=== PATIENT | male | born 1980 | race American Indian/Alaskan Native ===

== ENCOUNTER 2016-10-30 14:15 | Emergency (ER) | payer MEDICARE ==
[2016-10-30 15:00] VITALS: BP 129/82
[2016-10-30] MEDS ORDERED: FIORICET PO ONE (16:44)
--- NOTE | 2016-10-30 16:44 | Emergency Department Report ---
Entered by BONNY BOOTH, acting as scribe for JONATHAN XIONG PA. ED Headache HPI - General Chief Complaint: Headache Stated Complaint: MIGRAINES Time Seen by Provider: 10/30/16 16:31 Source: patient Exam Limitations: no limitations - History of Present Illness Initial Comments: 36 y/o male with a PMHx of HTN, migraines, and kidney transplant presents to the ED c/o a headache that began 2 weeks ago. Rates pain a 10/10 in severity, which he describes as throbbing in quality. Aggravated with light exposure and noise, and alleviated with medication. Associated symptoms includes fatigue and congestion, but he denies fever, chills, nausea, vomiting, dizziness, vision changes, and neck pain. Notes Hx of migraines. Denies that this headache feels like the worst headache in his life. Notes that when he goes to the ED for his migraines, they are usually relieved with dilaudid and a shot. Timing/Duration: other (2 weeks) Quality: moderate, throbbing Head Injury Location: frontal Recent Head Trauma: chronic headaches Modifying Factors: improves with: medication. worse with: exposure to light Associated Symptoms: denies symptoms, fatigue, nasal congestion. denies: confusion, facial pain, fever/chills, flushing, loss of consciousness, nausea/ vomiting, nasal drainage, numbness in legs/feet, rash, seizures, sinus infection , stiff neck, vision changes, weakness Allergies/Adverse Reactions: Allergies fexofenadine HCl [From Crissy-D] Allergy (Verified 10/30/16 14:56) Hives morphine Allergy (Verified 10/30/16 14:56) Hives prochlorperazine [From Compazine] Allergy (Verified 10/30/16 14:56) Hives prochlorperazine edisylate [From Compazine] Allergy (Verified 10/30/16 14:56) Hives prochlorperazine maleate [From Compazine] Allergy (Verified 10/30/16 14:56) Hives pseudoephedrine HCl [From Crissy-D] Allergy (Verified 10/30/16 14:56) Hives Sulfa (Sulfonamide Antibiotics) Allergy (Verified 10/30/16 14:56) Hives sulfamethoxazole [From Bactrim] Allergy (Verified 10/30/16 14:56) Hives trimethoprim [From Bactrim] Allergy (Verified 10/30/16 14:56) Hives Home Medications: Ambulatory Orders Butalb/Acetamin/Caff 50-325-40 [Fioricet] 1 each PO Q6HR PRN #14 tablet ED Review of Systems Comment: All other systems reviewed and negative Constitutional: other (fatigue). denies: chills, fever Eyes: denies: eye pain, eye discharge, vision change ENT: congestion. denies: ear pain, throat pain Respiratory: denies: cough, shortness of breath, wheezing Cardiovascular: denies: chest pain, palpitations Endocrine: no symptoms reported Gastrointestinal: denies: abdominal pain, nausea, vomiting, diarrhea Genitourinary: denies: urgency, dysuria Musculoskeletal: denies: back pain, joint swelling, arthralgia Skin: denies: rash, lesions Neurological: headache. denies: weakness, numbness, paresthesias, confusion, abnormal gait, vertigo Psychiatric: denies: anxiety, depression Hematological/Lymphatic: denies: easy bleeding, easy bruising ED Past Medical Hx - Past Medical History Previous Medical History?: Yes Hx Hypertension: Yes (BEFORE KIDNEY TRANSPLANT) Hx Headaches / Migraines: Yes Additional medical history: HD BEFORE KIDNEY TRANSPLANT/ SEIZURES A CHILD - Surgical History Past Surgical History?: Yes Additional Surgical History: VAS CATH - Family History Family history: no significant - Social History Smoking Status: Never Smoker Substance Use Type: Marijuana - Medications Home Medications: Home Medications Medication Instructions Recorded Confirmed Last Taken Type Butalb/Acetamin/Caff 50-325-40 1 each PO Q6HR PRN #14 tablet 10/30/16 Unknown Rx [Fioricet] ED Physical Exam - General Limitations: No Limitations General appearance: alert, in no apparent distress - Head Head exam: Present: atraumatic, normocephalic - Eye Eye exam: Present: normal appearance, PERRL, EOMI. Absent: scleral icterus, conjunctival injection, nystagmus, periorbital swelling, periorbital tenderness Pupils: Present: normal accommodation - ENT ENT exam: Present: normal exam, normal orophraynx, mucous membranes moist, TM's normal bilaterally, normal external ear exam - Neck Neck exam: Present: normal inspection, full ROM. Absent: tenderness, meningismus, lymphadenopathy, thyromegaly - Respiratory Respiratory exam: Present: normal lung sounds bilaterally. Absent: respiratory distress, wheezes, rales, rhonchi, stridor, accessory muscle use, decreased breath sounds - Cardiovascular Cardiovascular Exam: Present: regular rate, normal rhythm, normal heart sounds. Absent: systolic murmur, diastolic murmur, rubs, gallop - GI/Abdominal GI/Abdominal exam: Present: soft, normal bowel sounds. Absent: distended - Rectal Rectal exam: Present: deferred - Extremities Exam Extremities exam: Present: normal inspection - Back Exam Back exam: Present: normal inspection - Neurological Exam Neurological exam: Present: alert, oriented X3, CN II-XII intact, normal gait. Absent: altered, motor sensory deficit - Psychiatric Psychiatric exam: Present: normal affect, normal mood - Skin Skin exam: Present: warm, dry, intact, normal color. Absent: rash ED Course Vital Signs 10/30/16 14:57 Temperature 99.1 F Pulse Rate 87 Respiratory 18 Rate Blood Pressure 129/82 O2 Sat by Pulse 100 Oximetry ED Medical Decision Making - Lab Data Vital Signs 10/30/16 14:57 Temperature 99.1 F Pulse Rate 87 Respiratory 18 Rate Blood Pressure 129/82 O2 Sat by Pulse 100 Oximetry - Medical Decision Making patient is resting comfortably. NAD at this time, VSS and headache is chronic. requesting dilaudid. will start on fioricet. ED Disposition Clinical Impression: Chronic migraine Disposition: DC-01 TO HOME OR SELFCARE Is pt being admited?: No Does the pt Need Aspirin: No Condition: Good Instructions: Migraine Headache (ED) Prescriptions: Butalb/Acetamin/Caff 50-325-40 [Fioricet] 1 each PO Q6HR PRN #14 tablet PRN Reason: Headache Referrals: SAUD MORATAYA MD [Staff Physician] - 3-5 Days Forms: Work/School Release Form(ED) Time of Disposition: 16:44 This documentation as recorded by the LEOBARDO hughes JASMINE,accurately reflects the service I personally performed and the decisions made by , JONATHAN XIONG PA.
[2016-10-30] MEDS ORDERED: ZOFRAN ODT PO ONE (16:53)
[2016-10-30] MEDS ORDERED: ZOFRAN ODT ONE (16:55)
== END 2016-10-30 17:30 | disposition home or self-care (01) ==
LOC: ED 14:15
DX: G43.909 Migraine, unspecified, not intractable, without status migrainosus (principal); I10 Essential (primary) hypertension; F12.10 Cannabis abuse, uncomplicated; Z88.8 Allergy status to other drugs, medicaments and biological substances
CPT/HCPCS: 99282; Q0162